=== PATIENT | female | born 1980 | race Caucasian/White ===

== ENCOUNTER 2024-04-23 11:39 | Emergency (ER) | payer SELFPAY ==
[2024-04-23 11:48] VITALS: BP 130/80; PULSE 93; RESP 18; TEMP 98.7; BMI 27.3
[2024-04-23] MEDS: IBUPROFEN 600 MG TABLET (FP) PO ONE (13:00)
[2024-04-23] MEDS ORDERED: IBUPROFEN 600 MG TABLET (FP) PO ONE (13:11)
== END 2024-04-23 18:25 | disposition home or self-care (01) ==
LOC: JER 11:39
PROC: 2W3MX1Z Immobilization of Left Lower Extremity using Splint (ICD-10-PCS; principal; 2024-04-23)
DX: S82.202A Unspecified fracture of shaft of left tibia, initial encounter for closed fracture (principal); W10.9XXA Fall (on) (from) unspecified stairs and steps, initial encounter
CPT/HCPCS: 71046-TC-FY; 73560-TC-LT-FY; 73590-TC-LT-FY; 73610-TC-LT-FY; 73630-TC-LT; 99284-25

== ENCOUNTER 2024-04-28 19:49 | Inpatient (IN) | payer OTHER ==
[2024-04-28] MEDS ORDERED: ACETAMINOPHEN INJECTION 100 ML IVPB ONE (22:37)
[2024-04-28 22:43] LABS: BASO % 0.3 % (0-2.0); EOS % 0.7 % (0-4.5); HEMOGLOBIN 10.6 GM/dL (10.7-15.3); LYMPH % 18.2 % (8-40); MCH 26.2 pg (25.7-33.7); MCHC 34.3 g/dl (32.0-36.0); MEAN CELL VOLUME 76.5 fl (80-96); MEAN PLT VOLUME 7.6 fl (7.5-11.1); MONO % 7.8 % (3.8-10.2); PLATELET COUNT 253 10^3/uL (134-434); RBC 4.06 M/mm3 (3.60-5.2); RDW 14.8 % (11.6-15.6); WHITE BLOOD COUNT 8.2 K/mm3 (4.0-10.0)
[2024-04-28 22:49] LABS: INR 1.16 (0.83-1.09); PROTHROMBIN TIME (PATIENT) 13.3 SEC (9.7-13.0)
[2024-04-28] MEDS: ACETAMINOPHEN 1000 MG/100 ML BAG IVPB ONE (22:49)
[2024-04-28 22:52] LABS: ACTIVATED PTT 30.7 SECONDS (25.2-36.5)
[2024-04-28 23:21] LABS: POTASSIUM 4.2 mmol/L (3.5-5.1)
[2024-04-28 23:23] LABS: BLOOD UREA NITROGEN 12.3 mg/dL (7-18); CALCIUM 8.6 mg/dL (8.5-10.1)
[2024-04-28 23:27] LABS: CREATININE 0.7 mg/dL (0.55-1.3)
[2024-04-28 23:28] LABS: BILIRUBIN,TOTAL 0.4 mg/dL (0.2-1); TOT PROT 6.9 g/dl (6.4-8.2)
[2024-04-29] MEDS: SODIUM CHLORIDE 0.9% 500 ML INFUS.BAG IV ONE (01:37)
[2024-04-29] MEDS ORDERED: morphine SULFATE 4 MG/ML VIAL ONE (02:10)
[2024-04-29] MEDS: morphine CARPU-JECT 4 MG/1 ML DISP.SYRIN IVPUSH ONE (02:17)
[2024-04-29 04:29] LABS: PH,URINE 5.5 (5.0-8.0); URINE APPEARANCE CLEAR; URINE BILIRUBIN NEGATIVE (NEGATIVE); URINE COLOR YELLOW; URINE GLUCOSE (UA) NEGATIVE (NEGATIVE); URINE KETONE NEGATIVE (NEGATIVE); URINE LEUK ESTERASE NEGATIVE (NEGATIVE); URINE NITRITE NEGATIVE (NEGATIVE); URINE PROTEIN NEGATIVE (NEGATIVE); URINE UROBILINOGEN 0.2 mg/dL (0.2-1.0)
[2024-04-29] MEDS ORDERED: POLYETHYLENE GLYCOL (HEALTHYLAX) 3350 17 GM PACKET ONE (04:44)
[2024-04-29] MEDS: POLYETHYLENE GLYCOL (HEALTHYLAX) 3350 17 GM PACKET PO SCH ×2 (05:36→10:23)
[2024-04-29] MEDS: ENOXAPARIN NA (PORCINE) 40 MG/0.4 ML DISP.SYRIN SQ SCH (10:23)
[2024-04-29] MEDS: ACETAMINOPHEN 1000 MG/100 ML BAG IVPB PRN (11:25)
[2024-04-29 11:48] VITALS: RESP 18; BMI 26.4
[2024-04-29] MEDS: DOCUSATE SODIUM 100 MG CAPSULE (FP) PO SCH (13:08)
[2024-04-29] MEDS: BISACODYL 10 MG SUPP.RECT PR PRN (17:31)
[2024-04-29] MEDS: SENNOSIDES 8.8 MG/5 ML SYRUP PO SCH (21:10)
[2024-04-30] MEDS: KETOROLAC TROMETHAMINE 30 MG/1 ML VIAL IVPUSH ONE (05:23)
[2024-04-30] MEDS: LIDOCAINE 5% TOPICAL PATCH TP SCH (06:34)
[2024-04-30] MEDS ORDERED: FENTANYL CITRATE/PF 50 MCG/ML VIAL ONE ×2 (07:47→08:35)
[2024-04-30] MEDS ORDERED: PROPOFOL 20 ML ONE (07:47)
[2024-04-30] MEDS ORDERED: MIDAZOLAM HCL 2 MG/2 ML SINGLE DOSE VIAL ONE ×2 (07:47→08:35)
[2024-04-30] MEDS ORDERED: ceFAZolin SODIUM 1 GM VIAL ONE (07:54)
[2024-04-30] MEDS ORDERED: SODIUM CHLORIDE 0.9% P/F 10 ML VIAL IJ ONE (07:54)
[2024-04-30] MEDS ORDERED: ONDANSETRON 4 MG/2 ML VIAL IVPUSH PRN ×2 (08:01→15:00)
[2024-04-30] MEDS ORDERED: PROMETHAZINE HCL 25 MG/1 ML VIAL IVPB PRN (08:01)
[2024-04-30] MEDS ORDERED: FENTANYL CITRATE/PF 50 MCG/ML VIAL IVPUSH PRN (08:06)
[2024-04-30] MEDS: ceFAZolin SODIUM 1 GM VIAL IVPB ONE (08:24)
[2024-04-30] MEDS ORDERED: BUPIVACAINE HCL/PF 0.5% (5MG/ML) 10 ML VIAL ONE (08:24)
[2024-04-30] MEDS ORDERED: IBUPROFEN 600 MG TABLET (FP) PO PRN (09:47)
[2024-04-30] MEDS ORDERED: BISACODYL 10 MG SUPP.RECT PR PRN (10:15)
[2024-04-30] MEDS: LACTATED RINGERS SOLUTION 1,000 ML IV SCH ×3 (11:04→11:38)
[2024-04-30] MEDS: SENNOSIDES 8.8 MG/5 ML SYRUP PO SCH (11:08)
[2024-04-30] MEDS: morphine SULFATE/PF 1 MG/2 ML (2cc Syringe - QUVA) EP ONE (12:39)
[2024-04-30] MEDS: ACETAMINOPHEN 1000 MG/100 ML BAG IVPB PRN ×2 (12:39→23:01)
[2024-04-30] MEDS: CEFAZOLIN SODIUM 2 GM in DEXTROSE 5%-WATER 100 ML IVPB SCH (15:34)
[2024-04-30 15:43] LABS: HEMATOCRIT 29.9 % (32.4-45.2); HEMOGLOBIN 10.4 GM/dL (10.7-15.3); MCH 26.3 pg (25.7-33.7); MCHC 34.6 g/dl (32.0-36.0); PLATELET COUNT 249 10^3/uL (134-434); RBC 3.94 M/mm3 (3.60-5.2); RDW 14.3 % (11.6-15.6); WHITE BLOOD COUNT 10.4 K/mm3 (4.0-10.0)
[2024-04-30] MEDS ORDERED: CEFAZOLIN SODIUM 2 GM in DEXTROSE 5%-WATER - 50 ML IVPB SCH (16:00)
[2024-04-30 16:03] LABS: POTASSIUM 3.9 mmol/L (3.5-5.1)
[2024-04-30 16:06] LABS: ALBUMIN 2.9 g/dl (3.4-5.0); BLOOD UREA NITROGEN 12.8 mg/dL (7-18); CALCIUM 8.5 mg/dL (8.5-10.1); MAGNESIUM 1.7 mg/dL (1.8-2.4)
[2024-04-30 16:09] LABS: CREATININE 0.6 mg/dL (0.55-1.3); PHOSPHOROUS 3.3 mg/dL (2.5-4.9)
[2024-04-30 16:11] LABS: BILIRUBIN,TOTAL 0.5 mg/dL (0.2-1); TOT PROT 6.5 g/dl (6.4-8.2)
[2024-04-30] MEDS: POLYETHYLENE GLYCOL (HEALTHYLAX) 3350 17 GM PACKET PO SCH (21:46)
[2024-04-30] MEDS ORDERED: LIDOCAINE PATCH REMOVAL MC SCH (22:00)
[2024-05-01 09:00] LABS: BASO % 0.2 % (0-2.0); EOS % 0.4 % (0-4.5); HEMATOCRIT 28.2 % (32.4-45.2); HEMOGLOBIN 9.7 GM/dL (10.7-15.3); LYMPH % 15.4 % (8-40); MCH 26.3 pg (25.7-33.7); MCHC 34.3 g/dl (32.0-36.0); MEAN CELL VOLUME 76.7 fl (80-96); MONO % 9.7 % (3.8-10.2); NEUT % 74.3 % (42.8-82.8); PLATELET COUNT 250 10^3/uL (134-434); RBC 3.67 M/mm3 (3.60-5.2); RDW 14.4 % (11.6-15.6); WHITE BLOOD COUNT 7.3 K/mm3 (4.0-10.0)
[2024-05-01] MEDS: ENOXAPARIN NA (PORCINE) 40 MG/0.4 ML DISP.SYRIN SQ SCH (09:10)
[2024-05-01 09:16] LABS: POTASSIUM 4.2 mmol/L (3.5-5.1)
[2024-05-01 09:20] LABS: ALBUMIN 2.7 g/dl (3.4-5.0); BLOOD UREA NITROGEN 11.1 mg/dL (7-18); CALCIUM 8.3 mg/dL (8.5-10.1)
[2024-05-01 09:23] LABS: CREATININE 0.5 mg/dL (0.55-1.3)
[2024-05-01 09:25] LABS: BILIRUBIN,TOTAL 0.9 mg/dL (0.2-1); TOT PROT 6.2 g/dl (6.4-8.2)
[2024-05-01] MEDS ORDERED: ACETAMINOPHEN 325 MG TABLET (FP) PO PRN (10:15)
[2024-05-01 10:54] LABS: MAGNESIUM 1.8 mg/dL (1.8-2.4)
[2024-05-01] MEDS: ACETAMINOPHEN 325 MG TABLET (FP) PO SCH (17:52)
[2024-05-01 19:01] LABS: RETICULOCYTES 1.49 % (0.5-1.5)
[2024-05-02 06:07] VITALS: TEMP 98.4
[2024-05-02 08:33] VITALS: BP 101/57; PULSE 97
== END 2024-05-02 13:26 | disposition home or self-care (01) | DRG 313 ==
LOC: JER 19:49 → UNDOADMOB 04-29 07:15 → INTOOBSV 04-29 07:15 → JERBED 04-29 07:15 → J6S 04-29 08:42 → JERBED 04-29 09:21 → OBSVTOIN 04-30 10:01 → INTOOBSV 04-30 10:01
PROVIDERS: ATTEND Internal Medicine
PROC: 0QHH06Z Insertion of Intramedullary Internal Fixation Device into Left Tibia, Open Approach (ICD-10-PCS; principal; 2024-04-29)
DX: S82.252A Displaced comminuted fracture of shaft of left tibia, initial encounter for closed fracture (principal); K59.03 Drug induced constipation; F11.90 Opioid use, unspecified, uncomplicated; D50.9 Iron deficiency anemia, unspecified; X58.XXXA Exposure to other specified factors, initial encounter; Y93.89 Activity, other specified; Y92.89 Other specified places as the place of occurrence of the external cause; Y99.8 Other external cause status; R62.50 Unspecified lack of expected normal physiological development in childhood; T40.0X5A Adverse effect of opium, initial encounter
CPT/HCPCS: 36415; 71275-TC; 74177-TC; 76000-TC-FY; 80053; 81003; 82728; 83540; 83550; 83605; 83690; 83735; 84100; 84484; 84703; 85025; 85027; 85045; 85379; 85610; 85730; 86850; 86900; 86901; 87086; 93005; 93010; 94010; 94760; 97116-GP; 99285-25; C1713; G0378; J0131; Q9967; V1713